=== PATIENT | female | born 2005 ===

== ENCOUNTER 2024-11-19 22:43 | Emergency (ER) | payer OTHER, SELFPAY ==
[2024-11-19 22:55] VITALS: BP 119/78; PULSE 90; RESP 15; TEMP 36.1; O2SAT 100
--- NOTE | 2024-11-19 23:56 | PC.NURSE ---
Pt ambulatory to triage desk and stated she was going to leave d/t wait times. Pt educated on s/s that warrant a return visit and to follow up w pcp or other healthcare professional if sx persist. pt ambulatory out of dept w steady gait.
== END 2024-11-19 23:56 | disposition left against medical advice (07) ==
LOC: ANHED 11-20 00:12
PROVIDERS: Emergency Provider Emergency Medicine
DX: S09.90XA Unspecified injury of head, initial encounter (principal)
CPT/HCPCS: 81025; 99199